=== PATIENT | male | born 1955 | race Caucasian/White ===

== ENCOUNTER → 2016-06-07 | Outpatient (CLI) | payer OTHER ==
[~2016-06-07] MED LIST: ATOR10TA60 PO; CLOP75TA PO; CYCL10TA2 PO; DOXA4TAB3 PO; DOXA8TAB59 PO; GABA600T2 PO; HYDR-2762 PO; HYDR12.53 PO; IOHEXOL 180 MG/ML 10 ML VIAL. ONE; LISI-338 PO; METF500T4 PO; METO50TA2 PO; MULT1TAB6 PO; NITR0.4T6 SL; OMEP1CAP19 PO; PENI500T PO; POTA10TA10 PO; WARF5TAB7 PO; ZOLP5TAB5 PO; [UNRECOGNIZED DRUG - CODE] PO; methylPREDNISolone ACETATE 40 MG/ML VIAL. ONE; methylPREDNISolone ACETATE 80 MG/ML VIAL. ONE
--- NOTE | 2016-06-08 03:47 | PAIN ---
DATE OF SERVICE: 06/07/2016 INITIAL CONSULTATION CHIEF COMPLAINT: Low back, right lower extremity pain. HISTORY OF PRESENT ILLNESS: This is a 61-year-old male who presents with history of pain in low back, right lower extremity in the posterior gluteus, posterior thigh, posterior calf, worse with activity, standing, walking since about 05/03/2016, just over a month. The patient reports it is tingling with numbness and radiation shooting pain, aching and dull alternating with stabbing and sharp, feels "knotted up" again worse with standing, walking, changing positions. The patient reports it awakens him from sleep occasionally, but not every night. It does not affect his bowel or bladder controls with any incontinence and does affect his ability to walk, however. The patient reports he does feel some increased urinary urgency when the pain is worse, but no incontinence. The patient has had previous physical therapy, chiropractic treatment exercise, chiropractic seems to be helping some, but the pain is still significant into the right leg, all his back feels better with the chiropractic treatment, his leg does not. He has had epidural injections in 2013, which helped to about 75% or so by his report. The patient is also taking hydrocodone and cyclobenzaprine, hydrocodone does decrease the pain by about 50% as well. The patient did have MRI scan of the lumbar spine dated 05/17/2016 showing significant findings at L4-L5 with severe disk desiccation and disk bulge with asymmetric prominence of the right paracentral and right subarticular zone. L5-S1 shows superimposed right paracentral disk extrusion on a posterior disk bulge effacing the descending right S1 nerve root, bilateral foraminal disk bulging resulting in moderate to severe bilateral medial that is bilateral neural foraminal stenosis. The patient reports his disability rating from 0-10, 10 being the worst, is a 5 with family and home responsibilities, 9 with recreation, 3 with social activity, 5 with occupation, sexual behavior, self care and life support activities. The patient reports no loss of motor function in the lower extremities, but significant fatigability in the right leg with ambulation and standing even for more than about 15 minutes. PAST MEDICAL HISTORY: Significant for type 2 diabetes, hypertension, gastroesophageal reflux, arthritis, peripheral neuropathy. PREVIOUS SURGERIES: Include coronary artery bypass grafting and 2 previous lumbar surgeries. FAMILY HISTORY: Significant for heart disease and hypertension. SOCIAL HISTORY: The patient is , quit smoking earlier this year, previously smoked 1 pack a day for 35 years. Drinks alcohol 1-2 times a week on average. Has one child living at home, lives locally in [place], [place]. REVIEW OF SYSTEMS: The patient's review of systems is positive for those items mentioned in history of present illness. All systems reviewed and otherwise negative. It is complete, full and well documented on the patient's chart. PHYSICAL EXAMINATION: VITAL SIGNS: Today, the patient's blood pressure is 135/83, pulse 68, respirations 18, temperature is 98.3 degrees Fahrenheit, height 5 feet 10 inches, weight is 232 pounds. GENERAL: The patient is awake, alert, oriented, appropriate, very pleasant demeanor. HEENT: Shows normocephalic, atraumatic. Extraocular movements are intact and symmetrical. Oral cavity shows mucous membranes are moist and pink. Dentition is intact. NECK: Shows anterior throat supple without palpable lymphadenopathy noted. Swallow reflex is symmetrical. CHEST: Shows normal on inspection. Breath sounds are clear to auscultation bilaterally. HEART: Shows S1 and S2 clear. No murmurs auscultated, previous well-healed sternotomy scar is noted. ABDOMEN: Soft, nontender, nondistended. No palpable organomegaly. There is no rebound or guarding demonstrated. BACK: Shows spine grossly in midline, well-healed surgical scars noted in the lumbar distribution, normal-appearing thoracic kyphosis, cervical lordotic curvature and lumbar lordotic curvature is mildly flattened. Lumbar paraspinous musculature appears symmetrical on inspection with palpation shows some mild to moderate tenderness in the lower lumbar distribution only, but only diffusely, slightly more on the right than the left, but is symmetrical. Muscle girth is normal on palpation. The patient shows no tenderness over the spinous processes, sacrum or sacroiliac regions. The patient's rotational motion shows good rotation greater than 10 degrees, right and left in lumbar spine as well as extension greater than 10 degrees, forward flexion 45 degrees without exacerbation of pain. LOWER EXTREMITIES: Show deep tendon reflexes at 1+ in the patellar and tendo calcaneus tendons. Motor exam is strong with 5/5 dorsiflexion, extension, quadriceps and hamstring flexion and symmetrical. No peripheral edema is noted. No clubbing, no cyanosis. Lower extremities are warm and dry to touch, equal in color and appearance. Peripheral pulses are 1+ posterior tibial and dorsalis pedis pulses. The patient is able to stand, stand on his toes without difficulty, no loss of balance, able to heel-toe step for several steps, also walks with normal-appearing gait for a short distance, not using any assistive devices, canes or walkers to ambulate. IMPRESSION: 1. This is a 61-year-old male with approximately 1 month history of increasing low back right lower extremity pain with radicular quality in the right leg. 2. MRI scan as noted. 3. Type 2 diabetes. 4. Hypertension. 5. Arthritis. PLAN: Options were discussed with the patient including conservative medical management, physical therapy and interventional techniques. He would like to pursue interventional techniques. We discussed a lumbar epidural steroid injection using description as well as anatomical models describing the procedure with a caudal approach. The patient understands and would like to proceed with this. Risks were discussed including but not limited to bleeding, infection, possibility of epidural hematoma, subsequent neurological compromise, dural puncture, headaches, spinal cord and/or nerve damage, side effects of steroid medication and poor results regarding pain control. The patient understands and wishes to proceed. The patient will return to clinic in approximately 2 weeks for followup, was counseled on return appointment, activity level and side effects to be aware of. DIAGNOSES: Lumbar radiculopathy with post-lumbar laminectomy syndrome and lumbar degenerative disk disease. PROCEDURE: Caudal approach epidural steroid injection using C-arm fluoroscopic guidance, under sterile prep and drape using local anesthetic. Medication injected 120 mg of Depo-Medrol plus 10 ml of preservative-free normal saline and 2 mL of Isovue for contrast. Condition at discharge is stable. The patient tolerated the procedure well, had no complications. CECILY SHABAZZ MD DR: STEVEN/redd JOB#: [id number] / [id number] BRIA Palomino MD
== END | disposition home or self-care (01) ==
LOC: PNCL 07:56
PROVIDERS: ATTEND Anesthesiology
DX: M51.16 Intervertebral disc disorders with radiculopathy, lumbar region (principal); M96.1 Postlaminectomy syndrome, not elsewhere classified; M19.90 Unspecified osteoarthritis, unspecified site; K21.9 Gastro-esophageal reflux disease without esophagitis; E11.9 Type 2 diabetes mellitus without complications; I10 Essential (primary) hypertension; Z72.89 Other problems related to lifestyle; Z87.891 Personal history of nicotine dependence
CPT/HCPCS: 62323; J1030; J1040; 62327

== ENCOUNTER → 2016-06-21 | Outpatient (CLI) | payer OTHER ==
--- NOTE | 2016-06-21 19:36 | PAIN ---
DATE OF SERVICE: 06/21/2016 PROGRESS NOTE DIAGNOSES: Lumbar radiculopathy with lumbar degenerative disk disease and post-lumbar laminectomy syndrome. HISTORY OF PRESENT ILLNESS: The patient is a 61-year-old male, who returns for followup status post lumbar epidural steroid injection x 1. The patient reports approximately 75% improvement ____ after last injection, still some pain in low back, right leg "knot" sensation in the hip as well as the lower leg on the right side. The patient reports much better; however, most with activity, standing and walking, but is only 3 on a scale of 10 currently. The patient reports it is shooting and sharp pain is gone now in his leg. He does have some dull aching pain with residual. The patient reports no new motor or sensory deficits, no new bowel or bladder incontinence or other complaints. PHYSICAL EXAMINATION: VITAL SIGNS: The patient's blood pressure 135/83, pulse 69, respirations 18, temperature 98.1 degrees Fahrenheit, height 5 feet 10 inches, weight 225 pounds. GENERAL: The patient is awake, alert, oriented, appropriate, very pleasant demeanor. HEENT: Head shows normocephalic, atraumatic. Extraocular movements are intact and symmetrical. Oral cavity, mucous membranes are moist and pink. Dentition is intact. NECK: Shows anterior throat supple without palpable lymphadenopathy noted. Swallow reflex is symmetrical. CHEST: Shows normal on inspection. Breath sounds are clear to auscultation bilaterally. HEART: Shows S1 and S2 clear. No murmurs auscultated. ABDOMEN: Soft, nontender, nondistended. No palpable organomegaly. No rebound or guarding demonstrated. BACK: Shows spine grossly midline. Lumbar paraspinous muscle shows moderate tenderness to palpation, some flattening to lumbar lordotic curvature with well-healed surgical scar once again noted on inspection patient shows good rotational motion as well as extension and flexion of lumbar spine without significant pain reported. EXTREMITIES: Lower extremities show deep tendon reflexes 1+ in the patellar and tendo calcaneus tendons and equal. Motor exam is strong with dorsiflexion, extension, quadriceps and hamstring flexion and 5/5 and equal. Options were discussed with the patient. We will proceed with a second caudal approach epidural steroid injection today with fluoroscopic guidance. Risks were then discussed including, but not limited to bleeding, infection, possibility of epidural hematoma, subsequent neurologic compromise, dural puncture, headaches, spinal cord and/or nerve damage, side effects of steroid medication and poor results regarding pain control. The patient understands and wishes to proceed. The patient will return to clinic in approximately 2 weeks for followup, was counseled on return appointment, activity level and side effects to be aware of. DIAGNOSES: Lumbar radiculopathy with lumbar degenerative disk disease and post-lumbar laminectomy syndrome. PROCEDURE: Caudal approach epidural steroid injection uses C-arm fluoroscopic guidance under sterile prep and drape with local anesthesia. MEDICATIONS INJECTED: 120 mg Depo-Medrol plus 10 mL of preservative-free normal saline and 2 mL Isovue for contrast. CONDITION ON DISCHARGE: Stable. The patient tolerated the procedure well, had no complication. CECILY SHABAZZ MD DR: STEVEN/redd JOB#: [id number] / [id number]
== END | disposition home or self-care (01) ==
LOC: PNCL 07:56
PROVIDERS: ATTEND Anesthesiology
DX: M51.16 Intervertebral disc disorders with radiculopathy, lumbar region (principal); M96.1 Postlaminectomy syndrome, not elsewhere classified
CPT/HCPCS: 62323; J1030; J1040

== ENCOUNTER → 2016-07-19 | Outpatient (CLI) | payer OTHER ==
[~2016-07-19] MED LIST changes: -IOHEXOL 180 MG/ML 10 ML VIAL. ONE; -methylPREDNISolone ACETATE 40 MG/ML VIAL. ONE; -methylPREDNISolone ACETATE 80 MG/ML VIAL. ONE
--- NOTE | 2016-07-19 14:08 | CARD ---
APPROVED REPORT EXAM: Two-dimensional and M-mode echocardiogram with Doppler and color Doppler. Other Information Quality : GoodHR: 70bpm Rhythm : NSR INDICATION Cardiac Disease: CAD 2D DIMENSIONS RVDd3.5 (2.9-3.5cm)Left Atrium(2D)3.8 (1.6-4.0cm) IVSd0.8 (0.7-1.1cm)Aortic Root(2D)2.6 (2.0-3.7cm) LVDd5.5 (3.9-5.9cm)LVOT Diameter2.0 (1.8-2.4cm) PWd0.8 (0.7-1.1cm)LVDs3.7 (2.5-4.0cm) FS (%) 32.2 %SV88.0 ml LVEF(%)59.9 (>50%) Aortic Valve AoV Peak Brent.135.9cm/sAoV VTI29.2cm AO Peak GR.7.4mmHgLVOT Peak Brent.125.4cm/s LVOT VTI 24.58cmAO Mean GR.4mmHg ALETHEA (VMAX)2.01uz5EGZ (VTI)2.62cm2 Mitral Valve MV E Mjxqwkso57.1cm/sMV DECEL TCIU584cd MV A Uqnboxmw17.3cm/sMV E Mean Gr.2mmHg MV MBQ79kkG/A Ratio1.3 MV A Yotzpofh809hpLQD (PHT)3.80cm2 TDI E/Lateral E'8.5E/Medial E'12.7 Pulmonary Valve PV Peak Snqpuurs049.4cm/sPV Peak Grad.5mmHg RVOT VTI20.9cm Tricuspid Valve TR P. Astxfvgh019vn/sRAP CNCZDSAF1xiJi TR Peak Gr.57qsXqVJKP24aoLf Pulmonary Vein S1 Bwteitkj07.1cm/sD2 Omazsuvb11.0cm/s PVa jdrbkcnq204wrsm LEFT VENTRICLE The left ventricle is normal size. There is normal left ventricular wall thickness. Left ventricle sy stolic function is normal. The Ejection Fraction is 55-60%. There is normal LV segmental wall motion. The left ventricular diastolic function and filling is normal for age. There is no ventricular septa l defect visualized. RIGHT VENTRICLE The right ventricle is normal size. The right ventricular systolic function is normal. ATRIA The left atrium size is normal. The right atrium size is normal. The interatrial septum is intact wit h no evidence for an atrial septal defect or patent foramen ovale as noted on 2-D or Doppler imaging. AORTIC VALVE The aortic valve is mildly sclerotic. The aortic valve is trileaflet. Doppler and Color Flow revealed no significant aortic regurgitation. There is no significant aortic valvular stenosis. MITRAL VALVE The mitral valve is normal in structure and function. There is no evidence of mitral valve prolapse. There is no mitral valve stenosis. Doppler and Color Flow revealed trace mitral regurgitation. TRICUSPID VALVE The tricuspid valve is normal in structure and function. Doppler and Color Flow revealed trace to mil d tricuspid regurgitation. There is no tricuspid valve stenosis. PULMONIC VALVE The pulmonary valve is normal in structure and function. Doppler and Color Flow revealed trace pulmon ic valvular regurgitation. There is no pulmonic valvular stenosis. GREAT VESSELS The aortic root is normal in size. The ascending aorta is normal in size. Normal pulmonary venous susan w (Doppler). The IVC is normal in size and collapses >50% with inspiration. PERICARDIAL EFFUSION There is no pleural effusion. There is no evidence of significant pericardial effusion. Critical Notification Critical Value: No <Conclusion> The left ventricle is normal size. Left ventricle systolic function is normal. The Ejection Fraction is 55-60%. There is normal left ventricular wall thickness. There is no significant aortic valvular stenosis. Doppler and Color Flow revealed no significant aortic regurgitation. Doppler and Color Flow revealed trace mitral regurgitation. Doppler and Color Flow revealed trace to mild tricuspid regurgitation.
== END | disposition home or self-care (01) ==
LOC: ECHO 08:34
PROVIDERS: ATTEND Internal Medicine Cardiovascular Disease
DX: I25.10 Atherosclerotic heart disease of native coronary artery without angina pectoris (principal); I34.0 Nonrheumatic mitral (valve) insufficiency; I07.1 Rheumatic tricuspid insufficiency
CPT/HCPCS: 93306

== ENCOUNTER → 2017-07-24 | Outpatient (CLI) | payer OTHER | END | disposition home or self-care (01) | LOC: ECHO 09:55 | DX: I25.10 Atherosclerotic heart disease of native coronary artery without angina pectoris (principal); I36.1 Nonrheumatic tricuspid (valve) insufficiency; E11.9 Type 2 diabetes mellitus without complications; E78.5 Hyperlipidemia, unspecified | CPT/HCPCS: 93306 ==

== ENCOUNTER → 2018-05-16 | Outpatient (CLI) | payer OTHER ==
[~2018-05-16] MED LIST changes: +ASPI-861 PO; -GABA600T2 PO; +GABA600T7 PO; -HYDR-2762 PO; +HYDR-2765 PO; -HYDR12.53 PO; +HYDR12.575 PO; +METF500T16 PO; -METF500T4 PO; -METO50TA2 PO; +METO50TA6 PO; +NITR0.4T22 SL; -NITR0.4T6 SL; -POTA10TA10 PO; +POTA10TA12 PO; +WARF-31 PO; -WARF5TAB7 PO; -[UNRECOGNIZED DRUG - CODE] PO
--- NOTE | 2018-05-21 10:53 | SLEEP ---
DATE OF STUDY: 05/16/2018 ATTENDING PHYSICIAN: Dr. Pacheco. The patient is 63 years old who weighs 230 pounds with a BMI of 33. The patient's [place] score was 12. The patient underwent home sleep study performed by [facility]. Total recording time was 528 minutes. During the night study, the patient had 1 central apnea, 136 obstructive apneas, 94 mixed apneas and 59 hypopneas. The patient's apnea hypopnea index was 33 per hour. Supine sleep was not observed. Mean heart rate was 62 beats per minute with a maximum of 104 beats per minute. Nocturnal oximetry study revealed an average oxygen saturation of 94% with lowest of 79%. 6.7 minutes were spent in oxygen saturation less than 90%. IMPRESSION: 1. Severe sleep apnea-hypopnea syndrome with an AHI of 33 per hour. 2. Mild nocturnal hypoxia secondary to obstructive sleep apnea. RECOMMENDATIONS: 1. The patient would benefit from in-lab CPAP titration study. 2. Once optimal CPAP pressure is achieved, then follow up in 4-6 weeks to assess compliance and to document clinical improvement. 3. Weight loss is strongly advised. 4. Avoid DRAW HAND depressants. 5. Caution regarding driving until symptoms of sleep apnea resolve with the above recommendations. SALVATORE FISHER MD DR: MIROSLAVA/redd JOB#: [id number] / [id number] BETTY Bedolla MD
== END | disposition home or self-care (01) ==
LOC: RT 10:13
PROVIDERS: ATTEND Internal Medicine Pulmonary Disease
DX: G47.33 Obstructive sleep apnea (adult) (pediatric) (principal); G47.34 Idiopathic sleep related nonobstructive alveolar hypoventilation
CPT/HCPCS: G0399

== ENCOUNTER → 2018-08-08 | Outpatient (CLI) | payer OTHER ==
--- NOTE | 2018-08-08 08:58 | CARD ---
MR#: [id number] Date of Study: 08/08/2018 Ordering Physician: RM PARMAR, Referring Physician: RM PARMAR Tech: Zaina Campos RDCS APPROVED REPORT EXAM: Two-dimensional and M-mode echocardiogram with Doppler and color Doppler. Other Information Quality : GoodHR: 62bpm Rhythm : NSR INDICATION CAD 2D DIMENSIONS RVDd3.6 (2.9-3.5cm)Left Atrium(2D)4.0 (1.6-4.0cm) IVSd1.1 (0.7-1.1cm)Aortic Root(2D)3.1 (2.0-3.7cm) LVDd5.5 (3.9-5.9cm)LVOT Diameter2.1 (1.8-2.4cm) PWd0.9 (0.7-1.1cm)LVDs4.1 (2.5-4.0cm) FS (%) 25.8 %SV72.7 ml LVEF(%)50.2 (>50%) Aortic Valve AoV Peak Brent.128.1cm/sAoV VTI31.3cm AO Peak GR.6.6mmHgLVOT Peak Brent.114.0cm/s AO Mean GR.3mmHgAVA (VMAX)3.07cm2 ALETHEA (VTI)3.10cm2 Mitral Valve MV E Iggzhwjs992.0cm/sMV E Peak Gr.5mmHg MV DECEL JGTD164vqJN A Bvfynrhi08.4cm/s MV E Mean Gr.2mmHgE/A Ratio1.5 MV A Hmwfnbvf582ze Pulmonary Valve PV Peak Wngdoato61.1cm/s Tricuspid Valve TR P. Txdhsztw593is/sRAP MHYXGNXE4xrJd TR Peak Gr.85aoHxXYHG55bxAj LEFT VENTRICLE The Left Ventricle is mildly dilated. There is normal left ventricular wall thickness. Left ventricle systolic function is low normal. The Ejection Fraction is 50-55%. Septal motion suggestive of conduc tion defect. Transmitral Doppler flow pattern is Grade II-pseudonormal filling dynamics. RIGHT VENTRICLE The right ventricle is borderline dilated. There is normal right ventricular wall thickness. The righ t ventricular systolic function is normal. ATRIA The left atrium is mildly dilated. The right atrium size is normal. The interatrial septum is intact with no evidence for an atrial septal defect or patent foramen ovale as noted on 2-D or Doppler imagi ng. AORTIC VALVE The aortic valve is normal in structure and function. The aortic valve is trileaflet. Doppler and Col or Flow revealed no significant aortic regurgitation. There is no significant aortic valvular stenosi s. There is no aortic valvular vegetation. MITRAL VALVE The mitral valve is normal in structure and function. There is no evidence of mitral valve prolapse. There is no mitral valve stenosis. Doppler and Color-flow revealed trace mitral regurgitation. TRICUSPID VALVE The tricuspid valve is normal in structure and function. Doppler and Color Flow revealed trace tricus pid regurgitation. The PA pressure was estimated at 25 mmHg. There is no tricuspid valve prolapse or vegetation. There is no tricuspid valve stenosis. PULMONIC VALVE The pulmonic valve is not well visualized. GREAT VESSELS The aortic root is normal in size. The ascending aorta is normal in size. The IVC is dilated and geraldine apses >50% with inspiration. PERICARDIAL EFFUSION There is no evidence of significant pericardial effusion. Critical Notification Critical Value: No <Conclusion> Left ventricle systolic function is low normal. The Ejection Fraction is 50-55%. The Left Ventricle is mildly dilated. Septal motion suggestive of conduction defect. The IVC is dilated and collapses >50% with inspiration. Signed by : Tyson Staples, Electronically Approved : 08/08/2018 08:57:46
== END | disposition home or self-care (01) ==
LOC: ECHO 07:58
PROVIDERS: ATTEND Internal Medicine Cardiovascular Disease
DX: I25.10 Atherosclerotic heart disease of native coronary artery without angina pectoris (principal)
CPT/HCPCS: 93306

== ENCOUNTER → 2019-02-13 | Outpatient (CLI) | payer OTHER ==
[~2019-02-13] MED LIST changes: -ASPI-861 PO; +ASPI-964 PO; +REGADENOSON 0.4 MG/5 ML DISP.SYRIN. IV ONE
--- NOTE | 2019-02-13 11:26 | RAD ---
MR#: [id number] Date of Study: 02/13/2019 Ordering Physician: RM PARMAR, Referring Physician: RM PARMAR Tech: Feli Lima, DANA, RVT, RTR APPROVED REPORT Patient Location: OUT-PATIENT Risk Factors Hypertension Hyperlipidemia Cardiac Disease VELOCITY AND DOPPLER WAVEFORM ANALYSIS RIGHT cm/secWaveformSeverity LEFT cm/secWaveform Severity pCFA 109.2pCFA dCFA dCFA 154.6 Prof Fem Art. 63.6Prof Fem Art. 101.2 Fem Art Prox. 154.6Fem Art Prox. 153.9 Fem Art Mid. 88.3Fem Art Mid. 84.6 Fem Art Dist. 100.8Fem Art Dist. 84.6 Pop Art(AK) 93.4Pop Art(AK) 73.0 [facility]ILY SERVICE CENTER DIRECTOR Prox. 76.4PTA Prox. 78.8 FAMILY SERVICE CENTER DIRECTOR Dist. 92.5PTA Dist. 97.6 Per Art Prox. 43.4Per Art Prox. 68.0 MYESHA Prox. 45.7ATA Prox. 55.7 DPA 72DPA 59 Findings Grayscale images of the bilateral lower extremity arterial vessels reveals moderate diffuse plaque. W aveforms are triphasic and biphasic throughout the lower extremity arterial course. There is no significant stenosis in the bilateral lower extremity arterial vessels. There is three-ve ssel runoff below the knee. Critical Notification Critical Value: No <Conclusion> 1. No significant high-grade stenosis noted in the bilateral lower extremities with three-vessel runo ff. Signed by : Tyson Staples, Electronically Approved : 02/13/2019 11:26:07
--- NOTE | 2019-02-13 11:33 | RAD ---
MR#: [id number] Date of Study: 02/13/2019 Ordering Physician: RM PARMAR, Referring Physician: KALYANI MONSIVAIS Tech: GREG Resendiz ARRT (R) (N) APPROVED REPORT Test Type: Pharmacological Stress Nurse/Tech: Amaris Garcia R.N. Test Indications: CAD Cardiac History: Mi 2012, htn, obese DM Medications: See Electronic Medical Record Medical History: See Electronic Medical Record Resting ECG: SA- SR Resting Heart Rate: 67 bpm Resting Blood Pressure: 136/71mmHg Pretest Chest Pain: No chest painNone Nurse/Tech Notes S1S2, lungs CTA Consent: The procedure was explained to the patient in lay terms. Informed consent was witnessed. Rl eout was entered into [employer]. History and Stress Test performed by RT Casimiro (R) (N) Pharm. Details Pharmacologic stress testing was performed using 0.4mg per 5ml of regadenoson given intravenously ove r 7-10 seconds. Stress Symptoms SOB POST EXERCISE Reason for Termination: Infusion complete Max HR: 115 bpm Max Blood Pressure: 141/69mmHg Blood Pressure response to exercise: Normal blood pressure response during stress. Heart Rate response to exercise: wnl Chest Pain: No. Arrhythmia: No. ST Change: No. INTERPRETATION Stress EKG Conclusion: The resting EKG shows a sinus arrhythmia and mild ST segment changes in the in ferior leads. The stress EKG shows no significant changes from baseline. No EKG evidence of stressed induced ischemia. Imaging Protocol IMAGE PROTOCOL: Rest Tc-99m/stress Tc-99m 1 day Rest: Stress: Viability: Radiopharm.Tc99m StpazrhcrPf20u Sestamibi Hgef01bFf 34mCi Img Date 02/13/2019 02/13/2019 Inj-Img Dxyj61ewo. 60min. Rest Admin Site:IV - Right HandAdministrator:GREG Resendiz, THAIS (R)(N) Stress Admin Site: IV - Right HandAdministrator: RT Geronimo Kirkpatrick)(N) STRESS DATA End Diast. Vol.116.0mlLVEDV index BSA51.0ml End Syst. Vol.33.0mlLVESV index BSA15.0ml Myocardial Ciiq710.0gEject. Bpsobckd76.0% Stress Scores Regional WT0.00Summed WT5.00 Regional WM0.00Summed WM4.00 LV Perfusion The stress images show slight thinning in the inferior lateral wall. The rest images show slight thinning in the inferior lateral wall. Nuclear imaging shows no reversible ischemia. Nuclear imaging shows slight fixed inferior lateral wall thinning which may represent a prior infarct . Wall Motion Left ventricular systolic function is normal with an ejection fraction of greater than 70%. LV Perf. Quant 17 Seg. SSS3.00 17 Seg. SRS4.00 17 Seg. SDS0.00 Stress Defect Extent (% LAD)0.00Rest Defect Extent (% LAD)0.00Rev. Defect Extent (% LAD)0.00 Stress Defect Extent (% LCX) 21.30Rest Defect Extent (% LCX)21.30Rev. Defect Extent (% LCX)0.00 Stress Defect Extent (% RCA)1.10Rest Defect Extent (% RCA)4.40Rev. Defect Extent (% RCA)0.00 Stress Defect Extent (% MITALI)5.90Rest Defect Extent (% IMTALI)5.90Rev. Defect Extent (% MITALI)0.00 IMPRESSION RV Regional Wall Motion Change from Rest: No Change, New Wall Motion Abnormality Conclusion 1. No EKG evidence of stressed induced ischemia. 2. Nuclear imaging shows no reversible ischemia. 3. Nuclear imaging shows slight fixed thinning in the inferior lateral wall which may represent a rell or infarct. 4. Left ventricular systolic function is normal with an ejection fraction of greater than 70%. 5. Moderately low risk Lexiscan nuclear stress test. Signed by : Zhang Hooper MD Electronically Approved : 02/13/2019 11:33:34
== END | disposition home or self-care (01) ==
LOC: NM 08:14
PROVIDERS: ATTEND Internal Medicine Cardiovascular Disease
DX: I25.10 Atherosclerotic heart disease of native coronary artery without angina pectoris (principal); I10 Essential (primary) hypertension; I25.2 Old myocardial infarction; E66.9 Obesity, unspecified; E78.5 Hyperlipidemia, unspecified; E11.9 Type 2 diabetes mellitus without complications
CPT/HCPCS: 78452; 93017; 93923; A9500; J2785

== ENCOUNTER → 2019-08-21 | Outpatient (CLI) | payer OTHER ==
[~2019-08-21] MED LIST changes: -POTA10TA12 PO; +POTASSIUM CHLO10 ME1 PO; -REGADENOSON 0.4 MG/5 ML DISP.SYRIN. IV ONE
--- NOTE | 2019-08-21 09:05 | CARD ---
MR#: [id number] Date of Study: 08/21/2019 Ordering Physician: RM GUZMAN, Referring Physician: RM GUZMAN, Tech: Feli Kim APPROVED REPORT EXAM: Two-dimensional and M-mode echocardiogram with Doppler and color Doppler. Other Information Quality : AverageHR: 75bpm INDICATION Cardiac Disease: CAD RISK FACTORS Hypertension Hyperlipidemia Diabetes Previous smoker 2D DIMENSIONS Left Atrium(2D)3.9 (1.6-4.0cm)IVSd1.1 (0.7-1.1cm) Aortic Root(2D)3.1 (2.0-3.7cm)LVDd5.7 (3.9-5.9cm) LVOT Diameter2.0 (1.8-2.4cm)PWd1.2 (0.7-1.1cm) LVDs4.1 (2.5-4.0cm)FS (%) 28.6 % SV86.6 mlLVEF(%)54.4 (>50%) Aortic Valve AoV Peak Brent.123.9cm/sAoV VTI25.6cm AO Peak GR.6.1mmHgLVOT Peak Brent.116.9cm/s AO Mean GR.3mmHgAVA (VMAX)2.96cm2 Mitral Valve MV E Vmonwjai45.7cm/sMV DECEL JTME652gj MV A Urnvhkaa40.3cm/sE/A Ratio1.1 Tricuspid Valve TR P. Wmrlwqml725bj/sRAP QOYYTFAH6baFz TR Peak Gr.65rnAhZDTU30pbOc LEFT VENTRICLE The left ventricle is normal size. There is borderline concentric left ventricular hypertrophy. The l eft ventricular systolic function is normal. The ejection fraction is 55%. Septal motion consistent w ith conduction abnormality. Transmitral Doppler flow pattern is Grade II-pseudonormal filling dynamic s. RIGHT VENTRICLE The right ventricle is borderline dilated. There is normal right ventricular wall thickness. The righ t ventricular systolic function is normal. ATRIA The left atrium size is normal. The right atrium size is normal. The interatrial septum is intact wit h no evidence for an atrial septal defect or patent foramen ovale as noted on 2-D or Doppler imaging. AORTIC VALVE The aortic valve is normal in structure and function. Doppler and Color Flow revealed no significant aortic regurgitation. There is no significant aortic valvular stenosis. MITRAL VALVE The mitral valve is normal in structure and function. There is no evidence of mitral valve prolapse. There is no mitral valve stenosis. Doppler and Color Flow revealed no mitral valve regurgitation note d. TRICUSPID VALVE The tricuspid valve is normal in structure and function. Doppler and Color Flow revealed trace tricus pid regurgitation with an estimated PAP of 24 mmHg. There is no tricuspid valve stenosis. PULMONIC VALVE The pulmonic valve is not well visualized. Doppler and Color Flow revealed no pulmonic valvular regur gitation. GREAT VESSELS The aortic root is normal in size. The IVC was not well visualized. PERICARDIAL EFFUSION There is no evidence of significant pericardial effusion. Critical Notification Critical Value: No <Conclusion> The left ventricular systolic function is normal. The ejection fraction is 55%. Septal motion consistent with conduction abnormality. Trace tricuspid regurgitation with an estimated PAP of 24 mmHg. There is no evidence of significant pericardial effusion. Signed by : Rm Guzman, Electronically Approved : 08/21/2019 09:05:16
== END | disposition home or self-care (01) ==
LOC: ECHO 07:41
PROVIDERS: ATTEND Internal Medicine Cardiovascular Disease
DX: I51.7 Cardiomegaly (principal); I25.10 Atherosclerotic heart disease of native coronary artery without angina pectoris
CPT/HCPCS: 93306

== ENCOUNTER → 2019-09-18 | Outpatient (CLI) | payer OTHER ==
[~2019-09-18] MED LIST changes: +IOHEXOL 180 MG/ML 10 ML VIAL. ONE; +METF10007 PO; +methylPREDNISolone ACETATE 40 MG/ML VIAL. ONE; +methylPREDNISolone ACETATE 80 MG/ML VIAL. ONE
--- NOTE | 2019-09-18 11:28 | PAIN ---
DATE OF SERVICE: 09/18/2019 PROGRESS NOTE FOR PAIN CLINIC DIAGNOSES: 1. Lumbar radiculopathy with lumbar degenerative disk disease and lumbar post-laminectomy syndrome. 2. Cervical radiculopathy with cervical degenerative disk disease. HISTORY OF PRESENT ILLNESS: The patient is a 64-year-old male who returns for followup status post caudal approach epidural steroid injections, last seen in 05/2016. The patient did very well with two injections with about 75% improvement. The patient reports the pain was decreased for significant amount for about 2-1/2 years. The pain began to return now in the base of the low back and into the bilateral lower extremities, mostly in the posterior gluteus, posterolateral thigh, lateral anterior thighs, medial thighs, lower legs and into the posterior calves with burning in the feet as well. The patient also complains of pain in the neck and the base of the neck that is in the upper back radiating to the right upper extremity in a radicular fashion following a C6-C7 dermatomal distribution with some pain and tingling in the right thumb with some weakness and fatigability in the right upper extremity as well. The patient reports he is having significant pain in the back, it is his main complaint, but his neck and right arm and right side is also painful. The patient reports the pain is sharp, stabbing, shooting, radiating in bilateral lower extremities and in the right arm, intermittent in intensity with tingling and numbness, but gets worse at night. It is aching in quality in both the areas. The patient reports it generally does not awaken him from sleep at night, but he does take a sleeping medication. It does not affect his bowel or bladder control, but does affect his ability to walk, especially when he first gets up. The patient reports he has had epidural injections in the past, physical therapy, chiropractic treatment, exercise. He has done physical therapy and he is currently doing physical therapy, stretching and strengthening exercises for his upper neck and back and his right upper extremity, but it has not been helping significantly. The patient rates his disability rating from 0-10, 10 being the worst, is a 3 with family and home responsibilities, 7 with recreation, 1 with social activity and life support activities, 9 with sexual behavior, 4 with occupational activities and 0 with self-care activities. He did have a new MRI scan of the lumbar spine dated 09/04/2019 showing post-surgical changes at L4-L5 and L5-S1 with right hemilaminectomy present, mild compression of the spinal canal at laminectomy sites, mild spondylosis of the lumbar spine, most pronounced at L2-L3 and L3-L4 with spondylosis resulting in spinal canal narrowing, compression of thecal sac and unmw-zf-dfhpmirb bilateral neural foraminal narrowing. L3-L4 shows marked spinal canal stenosis and compression of thecal sac and bepg-kr-[id number] bilateral neural foraminal narrowing at that level. CURRENT MEDICATIONS: Include omeprazole, Centrum, daily baby aspirin, atorvastatin, gabapentin, potassium, metoprolol, doxazosin, lisinopril, zolpidem, metformin, and hydrochlorothiazide. ALLERGIES: The patient has no known drug allergies. FAMILY HISTORY: Significant for heart disease, diabetes, glaucoma. SOCIAL HISTORY: The patient drinks alcohol about 4 times a week, does not smoke, does not use any illegal, illicit or recreational drugs. He is , lives with his spouse, lives locally in [place], [place], is currently retired. REVIEW OF SYSTEMS: The patient's review of systems is positive for those items mentioned in history of present illness. All systems reviewed and otherwise negative. It is complete, full and well documented on the patient's chart. PHYSICAL EXAMINATION: VITAL SIGNS: The patient's blood pressure is 128/76, pulse 75, respirations 18, temperature 98.2 degrees Fahrenheit, height is 5 feet 10 inches, weight is 234 pounds. GENERAL: The patient is awake, alert, oriented, appropriate, very pleasant demeanor. HEENT: Exam shows normocephalic, atraumatic. Extraocular movements are intact and symmetrical. Oral cavity shows mucous membranes moist and pink. Dentition is intact. NECK: Shows anterior throat supple without palpable lymphadenopathy noted. Swallow reflex symmetrical. CHEST: Shows normal on inspection. Breath sounds are clear bilaterally. No rales, rhonchi or wheezes auscultated. HEART: Shows S1, S2 clear. No murmurs auscultated. ABDOMEN: Obese, soft, nontender, nondistended. No palpable organomegaly is noted. There is no rebound or guarding demonstrated. BACK: Shows spine grossly in the midline, normal-appearing cervical lordotic curvature, thoracic kyphotic curvature and some flattening of lumbar lordotic curvature with well-healed surgical scar in the lumbar distribution. The patient's paraspinous muscle shows symmetrical on inspection of the cervical distribution with some moderate tenderness diffusely bilaterally but only diffusely without significant radiation. The patient has good rotational motion of cervical spine, both laterally greater than 45 degrees closer to 90 degrees right and left as well as full extension, full forward flexion without significant difficulty. EXTREMITIES: Upper extremities show deep tendon reflexes 2+ in the biceps, triceps tendons. Motor exam is strong with english adjunct faculty strength rated at 5/5 as is bicep and tricep flexion. Peripheral pulses are 2+ radial. No peripheral edema is noted. Shoulder shrug is strong and intact without loss of strength on resistance, but with some moderate pain in the base of the neck and the right shoulder and lateral trapezius with resistance on the right side with shoulder shrug as well as with abduction of shoulder at 90 degrees, but again no loss of strength on resistance bilaterally. Lower extremities show deep tendon reflexes 1+ in the patellar and tendo calcaneus tendons. Motor exam is strong with dorsiflexion, extension, quadriceps and hamstring flexion rated at 5/5 and symmetrical. Peripheral pulses are 1+ posterior tibial. No peripheral edema is noted bilaterally. Straight leg raise noted to be negative for reproduction of radicular symptoms bilaterally. PLAN: Options were discussed with the patient. The patient's old chart was reviewed as his current medication regimen updated. Current review of systems updated today as well. We will proceed with a caudal approach epidural steroid injection today. Risks were discussed including but not limited to bleeding, infection, possibility of epidural hematoma, subsequent neurological compromise, dural puncture, headaches, spinal cord and/or nerve damage, side effects of steroid medication and poor results regarding pain control. The patient understands and wished to proceed. The patient will return to clinic in approximately 2 weeks. We discussed a cervical MRI scan. I think he does have a clinical radiculopathy on the right side at C6-C7 dermatomal distribution. We will make arrangements for a cervical MRI scan. In the meantime, the patient will continue with stretching and strength exercises of the upper back, neck and shoulders as he is doing exercise and physical therapy, exercises with these areas, but still with significant pain. Continue to take his anti-inflammatory medications as prescribed [id number] and we will wait for authorization on MRI scan of his cervical spine as well. In the meantime, we will proceed with a caudal epidural steroid injection today. I will have the patient return in approximately 2 weeks' for potential review of the MRI scan of cervical spine, potential cervical epidural steroid injection in the future and will discuss this once the MRI scan is obtained. DIAGNOSES: Lumbar radiculopathy with lumbar degenerative disk disease and lumbar post-laminectomy syndrome. PROCEDURE: Caudal approach epidural steroid injection using C-arm fluoroscopic guidance under sterile prep and drape using local anesthetic. MEDICATION INJECTED: A total of 120 mg Depo-Medrol plus 10 mL preservative-free normal saline and 2 mL of contrast. CONDITION AT DISCHARGE: Stable. The patient tolerated procedure well, had no complications. CECILY SHABAZZ MD DR: STEVEN/redd JOB#: [id number] / [id number]
== END ==
LOC: PNCL 09:01
PROVIDERS: ATTEND Anesthesiology
DX: M51.16 Intervertebral disc disorders with radiculopathy, lumbar region (principal); M96.1 Postlaminectomy syndrome, not elsewhere classified; M50.10 Cervical disc disorder with radiculopathy, unspecified cervical region
CPT/HCPCS: 62323; J1030; J1040; Q9965

== ENCOUNTER → 2019-10-02 | Outpatient (CLI) | payer OTHER ==
[~2019-10-02] MED LIST changes: -IOHEXOL 180 MG/ML 10 ML VIAL. ONE; -methylPREDNISolone ACETATE 40 MG/ML VIAL. ONE; -methylPREDNISolone ACETATE 80 MG/ML VIAL. ONE
--- NOTE | 2019-10-02 11:17 | PAIN ---
DATE OF SERVICE: 10/02/2019 PROGRESS NOTE FOR PAIN CLINIC DIAGNOSES: 1. Lumbar radiculopathy with lumbar degenerative disk disease and lumbar post-laminectomy syndrome. 2. Cervical radiculopathy with cervical degenerative disk disease. HISTORY OF PRESENT ILLNESS: The patient is a 64-year-old male who returns for followup status post caudal epidural steroid injection x 1 with near 100% improvement after the injection, still has almost no pain in the legs. He still has some burning and tingling and paresthesia from peripheral neuropathy in the feet, otherwise doing much better. The patient's chief complaint is neck and right upper extremity pain. The patient has had pain for about 2 years in the neck and shoulder, getting worse with time, radiating from the base of the neck into the right arm and shoulder posteriorly in the deltoid, lateral deltoid, anterior deltoid as well as in the triceps and biceps and forearm anteriorly and into the thumb and first and second fingers with some numbness and tingling as well. The patient describes it as aching, stabbing, sharp, tingling in the hand and neck and shoulder, worse with activity, worse with reaching over his head, weightbearing, repetitive motions, driving a car with his right hand to steering and repetitive weightbearing with carrying items or fine motor movements, becoming more difficult as well with the right hand such as buttoning a button on a garment or picking up small items, does have difficulty feeling with the thumb and first and second fingers on the right side. The patient reports it is a 4 on a scale of 10 as far as pain goes, worst, average and least throughout the week, but now his back is doing much better. It is much more noticeable in the right arm. The patient reports no new motor or sensory deficits, no new bowel or bladder incontinence. Generally, it does not awaken him from sleep at night, but can occasionally if he lies on his right side. The patient reports he has been doing physical therapy exercises with the neck and shoulder as well with the right arm, which has not been helpful. He has been doing this for about the past 2 months or so. PHYSICAL EXAMINATION: VITAL SIGNS: The patient's blood pressure 120/75, pulse 71, respirations 18, temperature 98.2 degrees Fahrenheit, height is 5 feet 10 inches, weight is 231 pounds. HEENT: Exam shows normocephalic, atraumatic. Extraocular movements are intact and symmetrical. Oral cavity shows mucous membranes moist and pink. Dentition is intact. NECK: Shows anterior throat supple without palpable lymphadenopathy noted. Swallow reflex symmetrical. CHEST: Shows normal on inspection. Breath sounds clear to auscultation bilaterally. HEART: Shows S1, S2 clear. No murmurs auscultated. ABDOMEN: Soft, nontender, nondistended. No palpable organomegaly is noted. No rebound or guarding demonstrated. BACK: Shows spine grossly in the midline. Normal appearing thoracic kyphosis and lumbar lordotic curvature slightly flattened with well-healed surgical scar noted. Cervical paraspinous muscle shows symmetrical on inspection, on palpation shows some moderate tenderness diffusely in the inferior aspect of the cervical paraspinous musculature, only on the right into the superior right medial trapezius, but not on the left. The patient has good rotational motion of cervical spine, both laterally as well as extension and flexion without significant difficulty. EXTREMITIES: The patient's upper extremities show deep tendon reflexes 2+ in the biceps and triceps tendons. Motor exam is approximately 4 on a scale of 5 on the right with window cleaner strength 5/5 on the left. Peripheral pulses are 2+ radial. No peripheral edema is noted. Shoulder shrug is strong and intact with some moderate pain reported with resistance on the right side only. This is true with abduction of shoulder to 90 degrees with resistance as well, but no loss of strength on resistance. The patient's sharp and dull discrimination shows some decreased ability to differentiate sharp and dull in the C6 and C7 dermatome on the right side only, but not the left. PLAN: Options were discussed with the patient. The patient's old chart was reviewed as his current medication regimen updated. Current review of systems updated today as well. We will preauthorize the patient for a cervical epidural steroid injection as the patient has significant clinical radiculopathy at C6-C7 dermatomal distribution on the right, status post physical therapy exercises on his own with stretching and strengthening exercises, also heat and massage therapy to the neck and shoulders. The patient has been taking anti-inflammatories at home mostly Motrin, but occasionally will take Tylenol also without significant long-term decrease in the pain. We discussed a cervical epidural steroid injection with the patient and would like to proceed once preauthorization is obtained. We will plan on a translaminar approach at the C6-C7 level for the right cervical radiculopathy in the C6-C7 dermatomal distribution. CECILY SHABAZZ MD DR: STEVEN/redd JOB#: [id number] / [id number]
== END | disposition home or self-care (01) ==
LOC: PNCL 10:11
PROVIDERS: ATTEND Anesthesiology
DX: M51.16 Intervertebral disc disorders with radiculopathy, lumbar region (principal); M50.10 Cervical disc disorder with radiculopathy, unspecified cervical region; M96.1 Postlaminectomy syndrome, not elsewhere classified; Z79.899 Other long term (current) drug therapy
CPT/HCPCS: G0463

== ENCOUNTER → 2020-02-20 | Outpatient (CLI) | payer OTHER ==
[~2020-02-20] MED LIST changes: +REGADENOSON 0.4 MG/5 ML DISP.SYRIN. IV ONE
--- NOTE | 2020-02-20 11:58 | RAD ---
MR#: [id number] Date of Study: 02/20/2020 Ordering Physician: RM PARMAR, Referring Physician: KALYANI MONSIVAIS Tech: RT Pam (R) (N) APPROVED REPORT Test Type: Pharmacological Stress Nurse/Tech: Raquel Mansfield R.N. Test Indications: CAD Cardiac History: Family history, Hypertension, Diabetes, CABG 4 vessel Medications: See Electronic Medical Record Medical History: See Electronic Medical Record Resting ECG: NSR Resting Heart Rate: 74 bpm Resting Blood Pressure: 131/78mmHg Pretest Chest Pain: No chest pain Nurse/Tech Notes S1S2, lungs sound clear Consent: The procedure was explained to the patient in lay terms. Informed consent was witnessed. Rl eout was entered into [employer] ([employer]). History and Stress Test performed by Raquel Mansfield R.N. Pharm. Details Pharmacologic stress testing was performed using 0.4mg per 5ml of regadenoson given intravenously ove r 7-10 seconds. Stress Symptoms Dyspnea POST EXERCISE Reason for Termination: Infusion complete Target HR: 133 Max HR: 98 bpm Max Blood Pressure: 128/61mmHg Blood Pressure response to exercise: Normal blood pressure response during stress. Chest Pain: No. Arrhythmia: No. ST Change: No. INTERPRETATION Stress EKG Conclusion: Baseline EKG showed sinus rhythm. No ischemic changes at peak stress. No arr hythmias. Imaging Protocol IMAGE PROTOCOL: Rest Tc-99m/stress Tc-99m 1 day Rest: Stress: Viability: Radiopharm.Tc99m RdvrcyhizZh40u Sestamibi Dose10.5mCi 32mCi Duration 13min. 13min. Img Date 02/20/2020 02/20/2020 Inj-Img Potr97qzc. 60min. Rest Admin Site:IV - Right AntecubitalAdministrator:RT Pam (R)(N) Stress Admin Site: IV - Right AntecubitalAdministrator: KALYANI ResendizTCShayan, ARRT (R)(N) STRESS DATA End Diast. Vol.126.0mlLVEDV index BSA56.0ml End Syst. Vol.43.0mlLVESV index BSA19.0ml Myocardial Vljg145.0gEject. Hvalavwr04.0% Stress Scores Regional WT0.00Summed WT5.00 Regional WM0.00Summed WM4.00 Study quality was good. Left Ventricular size was Normal at Rest and Stress. Lung uptake was . Left Ventricular ejection fraction is 66%. The rest and stress images show normal perfusion, normal contraction and thickening. LV Perf. Quant 17 Seg. SSS1.00 17 Seg. SRS1.00 17 Seg. SDS1.00 Stress Defect Extent (% LAD)0.00Rest Defect Extent (% LAD)0.00Rev. Defect Extent (% LAD)0.00 Stress Defect Extent (% LCX) 0.00Rest Defect Extent (% LCX)0.00Rev. Defect Extent (% LCX)0.00 Stress Defect Extent (% RCA)0.00Rest Defect Extent (% RCA)4.40Rev. Defect Extent (% RCA)0.00 Stress Defect Extent (% MITALI)0.90Rest Defect Extent (% MITALI)0.90Rev. Defect Extent (% MITALI)0.00 Conclusion 1. Regadenoson cardioisotope stress test did not show any evidence of ischemia or infarct. 2. Normal left ventricular systolic function with ejection fraction calculated at 66%. 3. Low risk for cardiac events. Signed by : Rm Parmar, Electronically Approved : 02/20/2020 11:58:21
== END ==
LOC: NM 12:51
PROVIDERS: ATTEND Internal Medicine Cardiovascular Disease
DX: I25.10 Atherosclerotic heart disease of native coronary artery without angina pectoris (principal)
CPT/HCPCS: 78452; 93017; A9500; J2785

== ENCOUNTER → 2020-03-02 | Outpatient (CLI) | payer OTHER ==
[~2020-03-02] MED LIST changes: -REGADENOSON 0.4 MG/5 ML DISP.SYRIN. IV ONE
--- NOTE | 2020-03-02 10:15 | PDOC ---
Progress Note - Pain Clinic Date of Service: DOS: DATE: 03/02/20 TIME: 10:11 Diagnosis: Dx: Lumbar radiculopathy with lumbar degenerative disc disease and lumbar postlaminectomy syndrome next Cervical radiculopathy with cervical degenerative disc disease History or Present Illness: HPI: 65-year-old male returns for follow-up status post caudal epidural steroid injection x1 September 18, 2019. Patient reports 100% improvement in his low back and leg pain for several months about 2 months ago the pain began to return in the low back and bilateral lower extremities mostly the posterior gluteus posterior lateral thigh lateral anterior thigh anterior medial thighs medial lower legs as well especially with some tingling on the anterior thighs bilaterally. Patient is recently seen his neurosurgeon as he has had previous lumbar surgery and he is recommending conservative care at this time with some central stenosis most noticeably at the L5-4 level as well as some HDL for 5 with prominent L3-4 and L4-5 disc bulges. Patient reports is worse with walking standing changing positions gently better with sitting or laying down does not awaken her from sleep most nights but can occasionally patient reports pain is a 10 on scale 10 is worse over the past week 6 on average 3 at its least and is a 3 today patient ports aching sharp shooting stabbing radiating to the lower extremities right essentially equal to left at this time. Patient reports no new motor or sensory deficits no new bowel or bladder incontinence or other complaints. Patient has been doing stretching strength exercises daily sometimes multiple times during the day also taking Advil Tylenol without significant decrease in pain. Physical Exam: VS: Blood pressure is 136/89 pulse 75 respirations 18 temperature 90.4 F height is 5 feet 10 inches weight is 242 pounds PE: PHYSICAL EXAMINATION: GENERAL: The patient is awake, alert, oriented, appropriate, very pleasant demeanor HEENT: Shows normocephalic, atraumatic. Extraocular movements are intact and symmetrical. Oral cavity: Mucous membranes moist and pink. Dentition is intact. NECK: Shows anterior throat supple without palpable lymphadenopathy noted. Swallow reflex symmetrical. CHEST: Shows normal on inspection. Breath sounds are clear bilaterally, no rales rhonchi wheezes auscultated. HEART: Shows S1, S2 clear. No murmurs auscultated. ABDOMEN: Soft, nontender, nondistended, obese. No palpable organomegaly is noted. No rebound or guarding demonstrated. BACK: Shows spine grossly in the midline. Normal-appearing cervical lordotic curvature. There is slightly increased thoracic kyphosis, some minor flattening of the lumbar lordotic curvature. Well-healed surgical scar noted in the midline. Lumbar paraspinous muscles show symmetrical on inspection, on palpation shows some moderate tenderness diffusely throughout the upper, middle and lower distribution of the paraspinous muscles bilaterally, but without specific trigger points, without radiation of pain. The patient has good rotational motion of the lumbar spine, both laterally as well as extension and flexion without significant difficulty. No tenderness over the spinous processes, sacrum or sacroiliac regions. EXTREMITIES: Lower extremities show deep tendon reflexes 1+ in the patellar and tendo calcaneus tendons. Motor exam is 4 on a scale of 5 with right dorsiflexion, extension, quadriceps and hamstring flexion and 4/5 on the left. Peripheral pulses are 1+ posterior tibial. No peripheral edema is noted bilaterally. Lower extremities are warm and dry to touch, equal in color and appearance. SKIN: Shows warm and dry, good turgor. No edema. No sores, rashes or bruising throughout. Procedure: Procedure: Options were discussed with the patient. Patient chart was reviewed his current medication regimen updated current review of systems updated today as well. Patient has a clinical radiculopathy in the L4-5 dermatomal distribution. Patient did very well after previous epidural steroid injection in August of this year. We will preauthorize patient for a lumbar epidural steroid injection she did very well with these in the past. Patient in the meantime we'll continue with daily stretching strength exercises has been doing as well as walking as tolerated also taking iejp-jsb-oodjedp analgesics will also add a Medrol Dosepak patient given instructions well side effects beware with the medication. Patient will follow up after preauthorization we'll plan on translaminar L4-5 lumbar epidural steroid injection at that time. Medication Injected: Med Injected: None Condition at Discharge: Condition at Discharge: Condition at discharge is stable. CECILY SHABAZZ MD Mar 02, 2020 10:15
== END | disposition home or self-care (01) ==
LOC: PNCL 08:44
PROVIDERS: ATTEND Anesthesiology
DX: M51.16 Intervertebral disc disorders with radiculopathy, lumbar region (principal); M50.10 Cervical disc disorder with radiculopathy, unspecified cervical region; M96.1 Postlaminectomy syndrome, not elsewhere classified; Z79.82 Long term (current) use of aspirin; Z79.899 Other long term (current) drug therapy; Z98.890 Other specified postprocedural states
CPT/HCPCS: 99212; G0463

== ENCOUNTER → 2020-03-16 | Outpatient (CLI) | payer OTHER ==
[~2020-03-16] MED LIST changes: +IOHEXOL 180 MG/ML 10 ML VIAL. ONE; +methylPREDNISolone ACETATE 40 MG/ML VIAL. ONE; +methylPREDNISolone ACETATE 80 MG/ML VIAL. ONE
--- NOTE | 2020-03-16 10:17 | PDOC ---
Progress Note - Pain Clinic Date of Service: DOS: DATE: 03/16/20 TIME: 10:14 Diagnosis: Dx: Lumbar radiculopathy with lumbar degenerative disc disease and post lumbar laminectomy syndrome Cervical radiculopathy with cervical degenerative disc disease History or Present Illness: HPI: 65-year-old male returns follow-up status post lumbar epidural steroid traction x1. Patient reports near 100% improvement for 3 months pain returning now and he is waiting for preauthorization with his insurance provider to proceed with a second injection he has obtained that now would like to proceed. Patient reports pain is in the low back bilateral lower extremities right essentially equal to left posterior gluteus posterior thighs lateral thighs anterior thighs medial thighs worse with walking standing changing positions better with sitting or laying down does not awaken from sleep at night. Patient ports his pain is an 8 on scale 10 is worse over the past week for an average 0 its least is a 4 today. Patient reports no new motor or sensory deficits no bladder incontinence or other complaints. Physical Exam: VS: Blood pressure is 164/77 pulse 89 respirations 18 temperature 98.7 F height is 5 feet 10 inches is 238 pounds PE: PHYSICAL EXAMINATION: GENERAL: The patient is awake, alert, oriented, appropriate, very pleasant demeanor HEENT: Shows normocephalic, atraumatic. Extraocular movements are intact and symmetrical. NECK: Shows anterior throat supple without palpable lymphadenopathy noted. Swallow reflex symmetrical. CHEST: Shows normal on inspection. Breath sounds are clear bilaterally, distant but no rales rhonchi or wheezes auscultated. HEART: Shows S1, S2 clear. No murmurs auscultated. ABDOMEN: Soft, nontender, nondistended, obese. No palpable organomegaly is noted. No rebound or guarding demonstrated. BACK: Shows spine grossly in the midline. Normal-appearing cervical lordotic curvature. There is slightly increased thoracic kyphosis, some minor flattening of the lumbar lordotic curvature. Lumbar paraspinous muscles show symmetrical on inspection, on palpation shows some moderate tenderness diffusely throughout the upper, middle and lower distribution of the paraspinous muscles bilaterally without specific trigger points, without radiation of pain. The patient has good rotational motion of the lumbar spine, both laterally as well as extension and flexion without significant difficulty. No tenderness over the spinous processes, sacrum or sacroiliac regions. EXTREMITIES: Lower extremities show deep tendon reflexes 1+ in the patellar and tendo calcaneus tendons. Motor exam is 4 on a scale of 5 with right dorsiflexion, extension, quadriceps and hamstring flexion and 4/5 on the left. Peripheral pulses are 1+ posterior tibial. No peripheral edema is noted bilaterally. Lower extremities are warm and dry to touch, equal in color and appearance. SKIN: Shows warm and dry, good turgor. No edema. No sores, rashes or bruising throughout. Procedure: Procedure: Options were discussed with the patient. Patient chart was reviewed his current medication regimen updated current review of systems updated today as well. We will proceed with a second in the series lumbar epidural steroid injection today with fluoroscopic guidance. Risks were discussed including but not limited to: Bleeding, infection, possibility of epidural hematoma and subsequent neurological compromise, dural puncture, headaches, spinal cord and/or nerve damage, side effects of steroid medication, and poor results regarding pain control. Patient understands wished to proceed. Patient will return to clinic in approximate 2 weeks for follow-up was counseled as to return appointment activity level and side effects to be aware of. Medication Injected: Med Injected: Procedure is lumbar epidural steroid injection under local anesthetic using sterile prep and drape at the L3-4 level using C-arm fluoroscopic guidance in both AP and lateral views medications injected is 120 mg Depo-Medrol + 10 mL preservative-free normal saline and 2 mL contrast- condition at discharge is stable patient tolerated procedure well had no complications. Condition at Discharge: Condition at Discharge: Condition at discharge stable, patient tolerated seizure well had no complications. CECILY SHABAZZ MD Mar 16, 2020 10:17
== END | disposition home or self-care (01) ==
LOC: PNCL 09:24
PROVIDERS: ATTEND Anesthesiology
DX: M51.16 Intervertebral disc disorders with radiculopathy, lumbar region (principal); M50.10 Cervical disc disorder with radiculopathy, unspecified cervical region; M96.1 Postlaminectomy syndrome, not elsewhere classified; Z79.82 Long term (current) use of aspirin; Z79.899 Other long term (current) drug therapy; Z98.890 Other specified postprocedural states
CPT/HCPCS: 62323; J1030; J1040; Q9965

== ENCOUNTER → 2020-08-02 | Outpatient (CLI) | payer OTHER ==
[~2020-08-02] MED LIST changes: +DOCU-153 PO; +EMPA10TA PO; +HYDR-2761 PO; -IOHEXOL 180 MG/ML 10 ML VIAL. ONE; -LISI-338 PO; +LISI-517 PO; +METH-562 PO; -methylPREDNISolone ACETATE 40 MG/ML VIAL. ONE; -methylPREDNISolone ACETATE 80 MG/ML VIAL. ONE
[2020-08-02 09:37] LABS: BASO # 0.1 x10^3/uL (0.0-0.2); BASO % 1 % (0-3); EOS # 0.4 x10^3/uL (0.0-0.7); EOS % 6 % (0-3); HEMATOCRIT 43.1 % (39.0-53.0); HEMOGLOBIN 14.8 g/dL (13.0-17.5); LYMPH # 1.6 x10^3/uL (1.0-4.8); LYMPH % 22 % (24-48); MEAN CORPUSCULAR HEMOGLOBIN 30 pg (25-35); MEAN CORPUSCULAR HGB CONC 34 g/dL (31-37); MEAN CORPUSCULAR VOLUME 89 fL (79-100); MONO # 0.5 x10^3/uL (0.0-1.1); MONO % 7 % (0-9); NEUT % 65 % (31-73); PLATELET COUNT 119 x10^3/uL (140-400); RED BLOOD COUNT 4.87 x10^6/uL (4.30-5.70); RED CELL DISTRIBUTION WIDTH 12.7 % (11.5-14.5); WHITE BLOOD COUNT 7.6 x10^3/uL (4.0-11.0)
[2020-08-02 09:59] LABS: ALBUMIN 4.2 g/dL (3.4-5.0); ALBUMIN/GLOBULIN RATIO 1.6 (1.0-1.7); CALCIUM 8.3 mg/dL (8.5-10.1); CREATININE 1.1 mg/dL (0.7-1.3); GFR 67.6; POTASSIUM 4.2 mmol/L (3.5-5.1); TOTAL BILIRUBIN 0.8 mg/dL (0.2-1.0); TOTAL PROTEIN 6.9 g/dL (6.4-8.2)
[2020-08-03 00:12] LABS: HEMOGLOBIN A1C 7.1 % (4.8-5.6)
--- NOTE | 2020-08-03 08:15 | NUR ---
FAXED PRETESTING RESULTS TO DR SANDERS'S OFFICE.
== END ==
LOC: SURGPAT 08:57
PROVIDERS: ATTEND Neurological Surgery
DX: Z01.812 Encounter for preprocedural laboratory examination (principal); M48.062 Spinal stenosis, lumbar region with neurogenic claudication; M54.16 Radiculopathy, lumbar region; Z20.822 Contact with and (suspected) exposure to COVID-19
CPT/HCPCS: 36415; 80053; 83036; 85025; 87641; U0003; U0005

== ENCOUNTER 2020-08-05 07:16 | Observation (INO) | payer OTHER ==
--- NOTE | 2020-08-04 16:22 | PREOP HP ---
DATE OF SERVICE: 08/05/2020 PREOPERATIVE HISTORY AND PHYSICAL HISTORY OF PRESENT ILLNESS: The patient is a pleasant 65-year-old who has difficulty with low back pain and pain, which radiates to both of his hips. He has left leg pain, which radiates down the posterior thigh and posterolateral thigh. Both anterior thighs feel numb left greater than right. He has also numbness and pain in both of his feet. He does, however, have an incidental diagnosis of neuropathy. The problem started about a year ago spontaneously. He feels as though his symptoms are slowly worsening. Standing and walking markedly increases discomfort. He did undergo three epidural steroid injections, which he says helped each about 3-4 weeks. CURRENT MEDICATIONS: Tylenol, hydrochlorothiazide, gabapentin, metoprolol, atorvastatin, doxazosin, lisinopril, metformin, potassium, aspirin, omeprazole, Centrum. PAST MEDICAL HISTORY: PE, diabetes, [place], hypertension, CAD, neuropathy. PAST SURGICAL HISTORY: Coronary artery bypass graft, lumbar surgery in 1996, lumbar surgery in 2006. FAMILY HISTORY: Heart disease, hypertension. SOCIAL HISTORY: , retired. Quit smoking this year. Drinks alcohol 1-2 times per week. ALLERGIES: No known drug allergies. REVIEW OF SYSTEMS: A 12-point review of systems was performed and is noncontributory except as mentioned above. PHYSICAL EXAMINATION: GENERAL: Alert, pleasant, and in no acute distress. HEENT: Head normocephalic, atraumatic. SKIN: Warm and dry. Well-healed lumbar incision. MUSCULOSKELETAL: Lumbar paraspinal muscle bulk is normal, restricted range of motion of the lumbar spine, gyhl-yj-vrlqudyf tenderness of the lower lumbar spine on palpation, normal range of motion of the lower extremities bilaterally. EXTREMITIES: No clubbing, cyanosis or edema. NEUROLOGIC: Alert and oriented x 3, strength is 5/5 in bilateral lower extremities, sensory was intact to light touch in the lower extremities bilaterally except for a subjective decrease in light touch involving the left anterior thigh and both of his feet diffusely. Reflexes were trace and symmetric in the bilateral lower extremities, negative straight leg raising bilaterally, normal gait. IMAGING DATA: I reviewed the lumbar MRI scan. On that study at L3-L4, there is diffuse disk bulging with central disk protrusion. There is significant stenosis at this level as well as L2-3. At L4-L5, there are right-sided hemilaminotomy changes from the previous operation. There is a narrowed spinal canal on the left with lateral recess narrowing. ASSESSMENT AND PLAN: The patient is having difficulty with lumbar stenosis and lateral recess narrowing causing radicular symptoms. My recommendation at this point would be to operate at L2-3 and L3-L4 and perform a laminectomy. At L4-L5, he should have a left-sided hemilaminotomy with decompression of dura and nerve root. I discussed all of this with him in detail. He would like to go ahead. We will make the arrangements. CATRACHO/TRACEE/KEVIN DR: Hannah TID: [id number] JOSSE
[2020-08-05] VITALS (9 sets, daily range): BP systolic 103–117; BP diastolic 59–73
[~2020-08-05] VITALS: Ht 177.8 cm; Wt 107.5 kg
[~2020-08-05 07:16] MED LIST changes: +BUPIVACAINE-EPI 0.5%-1:200000 MPF 30 ML VIAL. ONE; +DEXAMETHASONE SOD PHOS 4 MG/ML VIAL ONE; -DOCU-153 PO; +GELATIN SPONGE SIZE 100. ONE; -HYDR-2761 PO; +HYDROmorphone 2 MG/ML VIAL IVP PRN; +IV RINGERS,LACTATED 1000ML 1,000 ML IV SCH; +KETOROLAC 60 MG/2 ML VIAL. ONE; +LIDOCAINE 2% PF 5 ML VIAL. ONE; -METH-562 PO; +MORPHINE SULFATE 2 MG/ML VIAL. IVP PRN; +ONDANSETRON PF 4 MG/2 ML VIAL. ONE; +PHENYLEPHRINE in 0.9% NACL PF 1 MG/10 ML SYRINGE. IV ONE; +PROCHLORPERAZINE 10 MG/2 ML VIAL. IVP PRN; +PROPOFOL 10 MG/ML (20ML) VIAL. IV ONE; +PROPOFOL 50 ML IV ONE; +REMIFENTANIL 2 MG VIAL. IV ONE; +ROCURONIUM 50 MG/5 ML VIAL. ONE; +THROMBIN TOPICAL 20,000 UNIT SPRAY.SYRN KIT TP ONE; +fentaNYL PF VIAL 100 MCG/2 ML VIAL IVP PRN; +fentaNYL PF VIAL 100 MCG/2 ML VIAL ONE
[2020-08-05] MEDS ORDERED: MIDAZOLAM HCL/PF 2 MG/2 ML VIAL. ONE (08:17)
[2020-08-05] MEDS ORDERED: SUCCINYLCHOLINE 200 MG/10 ML VIAL. ONE (08:17)
[2020-08-05] MEDS ORDERED: GLYCOPYRROLATE 1 MG/5 ML VIAL. ONE (08:45)
[2020-08-05] MEDS ORDERED: PHENYLEPHRINE 10 MG/ML VIAL. ONE ×2 (09:01→10:50)
[2020-08-05] MEDS ORDERED: DEXTROSE 50% 25 GM / 50ML DISP.SYRIN. IV ONE (10:41)
[2020-08-05] MEDS ORDERED: DEXAMETHASONE SOD PHOS 4 MG/ML VIAL ONE ×2 (10:41→11:49)
[2020-08-05] MEDS ORDERED: PHENYLEPHRINE in 0.9% NACL PF 1 MG/10 ML SYRINGE. IV ONE (10:50)
[2020-08-05] MEDS ORDERED: PROPOFOL 50 ML IV ONE ×2 (11:09→11:43)
[2020-08-05] MEDS ORDERED: REMIFENTANIL 1 MG VIAL. IV ONE (11:11)
[2020-08-05] MEDS ORDERED: GELATIN SPONGE SIZE 100. ONE (11:49)
[2020-08-05] MEDS ORDERED: DESFLURANE > 120 MINUTES IH ONE (12:15)
[2020-08-05] MEDS ORDERED: NALOXONE 0.4 MG/ML VIAL. IV PRN (12:30)
[2020-08-05] MEDS ORDERED: MAG HYDROX/ALUMINUM HYD/SIMETH 30 ML ORAL.SUSP PO PRN (12:30)
[2020-08-05] MEDS ORDERED: 0.9 % SODIUM CHLORIDE 10 ML DISP.SYRIN. IV PRN (12:30)
[2020-08-05] MEDS ORDERED: ACETAMINOPHEN 325 MG TABLET. PO PRN (12:30)
[2020-08-05] MEDS ORDERED: CALCIUM CARBONATE 500 MG TAB.CHEW PO PRN (12:30)
[2020-08-05] MEDS ORDERED: ONDANSETRON PF 4 MG/2 ML VIAL. IVP PRN (12:30)
[2020-08-05] MEDS ORDERED: MAGNESIUM HYDROXIDE 2,400 MG/30 ML ORAL.SUSP. PO PRN (12:30)
[2020-08-05] MEDS ORDERED: HYDROcodone/APAP 5/325MG 1 TAB TABLET PO PRN (12:30)
[2020-08-05] MEDS ORDERED: DEXTROSE 50% 25 GM / 50ML DISP.SYRIN. IV PRN (12:30)
[2020-08-05] MEDS ORDERED: POTASSIUM CL 20MEQ-0.45% NACL 1,000 ML IV SCH (12:30)
[2020-08-05] MEDS ORDERED: ZOLPIDEM 5 MG TABLET. PO PRN (12:30)
[2020-08-05] MEDS ORDERED: METHOCARBAMOL 750 MG TABLET PO PRN (12:30)
[2020-08-05] MEDS ORDERED: diphenhydrAMINE HCL 25 MG CAPSULE PO PRN (12:30)
[2020-08-05] MEDS ORDERED: fentaNYL PF VIAL 100 MCG/2 ML VIAL IVP PRN (12:30)
--- NOTE | 2020-08-05 12:43 | OP ---
DATE OF SURGERY: 08/05/2020 PREOPERATIVE DIAGNOSES: Lumbar spinal stenosis L2-L3, L3-L4, lateral recess stenosis, left L4-L5. OPERATION PERFORMED: Left direct laminectomy L2-L3, left direct laminectomy L3-L4, hemilaminotomy with microdecompression of dura and nerve root on the left, L4-L5. The operation was done with multimodality monitoring including EMG, SSEP. We used fluoroscopy and microscopic dissection. SURGEON: Bayron Reno M.D. FLAVOR TANK TENDER: Zohreh Mayfield APRN assisted with the surgery. She assisted with the exposure, the multilevel laminectomy as well as the closure. OPERATIVE INDICATION: The patient is a pleasant 65-year-old having difficulties with back and bilateral leg pain, usually worse on the left side. On imaging studies, he got the above-mentioned findings and I recommended lumbar microsurgery. I spoke with him about the surgery, the risks, technique and expected postoperative course, and he wished to go ahead. DESCRIPTION OF PROCEDURE: Following general endotracheal anesthesia, the patient was positioned prone on the Aleks table. Lumbar region prepped and draped in standard fashion. RUSSEL hose and AV impulse boots were applied for DVT prophylaxis. The microscope was draped, fluoroscopy was draped and brought into the field. Monitoring was established. Ancef 2 grams was given less than one hour prior to initiation of surgery. Using fluoroscopic guidance, a midline incision was made extending from L2 to L5, I dissected down through the skin, subcutaneous tissue, reflected the paraspinal muscles first at L2-L3 and placed a Bullock microdisk retractor. I brought in the microscope and using the high speed air drill, I burred down a generous hemilaminotomy. I tilted the patient far away from ri and drilled out of the lamina to the contralateral side. I peeled away thickened ligamentum flavum, exposing the dura and removed the midline epidural fat and then working laterally peeled away the ligamentum flavum and performed a partial foraminotomy. The disc was not bulging significantly. I irrigated with antibiotic solution and Gelfoam over the laminectomy site. I then moved the retractor down to L3-L4. The identical operation was performed at L3-L4, there was some disc bulging when I palpated medially, but the disc was rock hard and no discectomy was warranted. I fully decompressed this region in similar fashion. Hemostasis remained excellent. Then, I moved down to L4-5, again moving the retractor inferiorly. At this level, I burred down a very generous hemilaminotomy and then performed a partial foraminotomy. The dura was pushed quite far medially from the hypertrophic facet and I trimmed this material away performing a foraminotomy at left and the nerve and dura moved laterally. Hemostasis was excellent. I irrigated copiously with antibiotic solution. I then removed the retractor, obtained hemostasis and irrigated copiously the muscle fascia, obtained perfect hemostasis. I closed the wound in layers with absorbable suture. The skin was closed with 4-0 subcuticular stitch. I felt that the surgery went very well. EVER/KEVIN DR: Jeanie TID: [id number] MTDNorberto
[2020-08-05] MEDS: hydroCHLOROthiazide 12.5 MG CAPSULE PO SCH (13:00)
[2020-08-05] MEDS: METOPROLOL TART IMMED RELEASE 50 MG TABLET. PO SCH ×2 (13:00→21:00)
[2020-08-05] MEDS: LISINOPRIL 5 MG TABLET. PO SCH (13:00)
[2020-08-05] MEDS: POTASSIUM CHLORIDE 10 MEQ TABLET.ER. PO SCH (13:00)
[2020-08-05] MEDS: DOXAZOSIN MESYLATE 4 MG TABLET. PO SCH (13:00)
--- NOTE | 2020-08-05 15:00 | NUR ---
received from recovery. dressing saturated with serosanguineous drainage. reinforced with abd /Medipore tape. states he has neuropathy in soles of feet. has good sensation on tops of feet, good motion and sensation bilateral lower extremities. he is rating his pain a "6"; medicated with fentanyl denies numbness or tingling.
[2020-08-05] MEDS: PANTOPRAZOLE 40 MG TABLET.DR. PO SCH (16:30)
--- NOTE | 2020-08-05 17:00 | NUR ---
reinforced dressing is "leaking". removed original dressing. cleansed with chlor prep then 10 pack 4x4's then 2 abd and medipore tape applied. up in chair for supper. iv fluids continue. at bedside
[2020-08-05] MEDS: GABAPENTIN 300 MG CAPSULE. PO SCH ×2 (17:15→20:51)
[2020-08-05] MEDS: metFORMIN 500 MG TABLET PO SCH (17:16)
[2020-08-05] MEDS: DOCUSATE SODIUM 100 MG CAPSULE. PO SCH (20:51)
[2020-08-05] MEDS: HYDROcodone/APAP 5/325MG 1 TAB TABLET PO PRN (20:58)
[2020-08-05] MEDS ORDERED: ATORVASTATIN CALCIUM 10 MG TABLET. PO SCH (21:00)
[2020-08-06 03:15] VITALS: BP 109/68
--- NOTE | 2020-08-06 05:45 | NUR ---
Lortab given at 2100. Dressing C/D/I. Patient states "I need my Cpap, I guess." "keep jumping awake." RA sat 97%. O2 at 3l put on per NC. Patient reports that he didn't expect to stay the [facility] in hospital.
[2020-08-06 06:12] VITALS: BP 140/87
[2020-08-06] MEDS: HYDROcodone/APAP 5/325MG 1 TAB TABLET PO PRN ×2 (06:17→12:38)
[2020-08-06] MEDS: PANTOPRAZOLE 40 MG TABLET.DR. PO SCH (06:18)
--- NOTE | 2020-08-06 06:20 | NUR ---
Lortab 2 tabs given for c/o "back pain and thigh numbness. FSBS 140. Eyes seem puffy this am.
[2020-08-06] MEDS: hydroCHLOROthiazide 12.5 MG CAPSULE PO SCH (08:18)
[2020-08-06] MEDS: metFORMIN 500 MG TABLET PO SCH (08:18)
[2020-08-06] MEDS: DOXAZOSIN MESYLATE 4 MG TABLET. PO SCH (08:18)
[2020-08-06] MEDS: METOPROLOL TART IMMED RELEASE 50 MG TABLET. PO SCH (08:19)
[2020-08-06] MEDS: DOCUSATE SODIUM 100 MG CAPSULE. PO SCH (08:19)
[2020-08-06] MEDS: POTASSIUM CHLORIDE 10 MEQ TABLET.ER. PO SCH (08:19)
[2020-08-06] MEDS: LISINOPRIL 5 MG TABLET. PO SCH (08:20)
[2020-08-06] MEDS: GABAPENTIN 300 MG CAPSULE. PO SCH (08:20)
[2020-08-06] MEDS ORDERED: NON FORMULARY ITEM (Empagliflozin (Jardiance) 10 MG) PO SCH (09:00)
--- NOTE | 2020-08-06 09:00 | NUR ---
Up in chair. Some discomfort lower back. Applied new ice pack. Discussed the plan of care for today. Verbalized understand. Cont. monitor. Waiting for therapy.
[2020-08-06] MEDS ORDERED: METH-562 PO (10:36)
[2020-08-06] MEDS ORDERED: DOCU-153 PO (10:36)
[2020-08-06] MEDS ORDERED: HYDR-2761 PO (10:36)
--- NOTE | 2020-08-06 10:38 | DISCH ---
DISCHARGE INSTRUCTIONS Condition on Discharge Condition on Discharge: Stable Activity After Discharge Activity Instructions for Disc: Activity as tolerated, Avoid exertion Other activity instructions: no driving for a week Bathing Instructions: Shower-keep dressing dry Lifting Instructions after Dis: No heavy lifting, No pulling or pushing, Do not lift >10 pounds Diet after Discharge Additional Diet Restrictions: resume home diet Wound Incision Care Wound/Incision Care: Ice to area for comfort Other wound/incision instructi: may remove dressing in 48 hours if dry then may shower, no soaking Contacting the after DC Call your doctor for: Concerns you may have Follow-Up Follow up with: Dr. Sanders's nurse in 2 weeks [phone] TITO SANDERS MD August 06, 2020 10:38
[2020-08-06 10:45] VITALS: BP 106/54
--- NOTE | 2020-08-06 13:25 | NUR ---
Discharge instructions given with prescriptions. Answered questions and concerns. Both pt and spouse verbalized understanding. Also instructed and demonstrated spouse how to change dressing. Supplies given. Pt discharged home escorted out by w/c.
--- NOTE | 2020-08-09 14:07 | PATHOLOGY ---
[facility] Accession Number: [id number] . 01 Material submitted: . vertebral column - LUMBAR DECOMPRESSION . 01 Clinical history: . LUMBAR STENOSIS, RADICULOPATHY LUMBAR LAMINECTOMY L2-3,L3-4 LUMBAR MICRODECOMPRESSION L4-5 . 02 Diagnosis: Segments of fibrocartilaginous tissue and bone, lumbar decompression: - Degenerative changes of fibrocartilaginous tissue. ([facility]; 08/09/2020) R 08/09/2020 1129 Local . 02 Comment: There is no evidence of an acute inflammatory process or malignancy. ([facility]; 08/09/2020) . 02 Electronically signed: . Lamont Kerns MD, Pathologist NPI- [id number] . 01 Gross description: . Received in formalin labeled "Navinsky, Vinh and lumbar decompression". Received are multiple congested pink-pacheco fibrous soft soft tissue fragments admixed with cartilage/bone measuring in aggregate 5.0 x 5.0 x 1.0 cm. The specimen is representatively submitted in cassette A1 after decalcification.([facility]; 08/05/2020) [facility] 08/05/2020 1841 Local . 02 Pathologist provided ICD-10: M51.36 . 02 CPT . 335766, [id number] Specimen Comment: A courtesy copy of this report has been sent to [phone], [phone] Specimen Comment: [id number] Specimen Comment: Report sent to / DR VILLAGOMEZ Specimen Comment: A duplicate report has been generated due to demographic updates. Performed at: [address], [place] [id number] MD Benigno Landeros MD Phone: [phone] Performed at: 02 [facility] [address], [place] [id number] MD Lamont Kerns MD Phone: [phone]
== END 2020-08-06 13:45 | disposition home or self-care (01) ==
LOC: SURG 07:16 → 4 SOUTHEST 12:21
PROVIDERS: ADMIT Neurological Surgery; ATTEND Neurological Surgery
DX: M48.062 Spinal stenosis, lumbar region with neurogenic claudication (principal); M48.061 Spinal stenosis, lumbar region without neurogenic claudication; I10 Essential (primary) hypertension; I25.10 Atherosclerotic heart disease of native coronary artery without angina pectoris; I25.2 Old myocardial infarction; E11.40 Type 2 diabetes mellitus with diabetic neuropathy, unspecified; Z95.1 Presence of aortocoronary bypass graft; Z87.891 Personal history of nicotine dependence; Z86.718 Personal history of other venous thrombosis and embolism; Z79.899 Other long term (current) drug therapy; Z98.890 Other specified postprocedural states
CPT/HCPCS: 63030; 63047; 63048; 82962; 88304; 88311; 96360; 96361; 97116; 97162; 97530; A4364; A4930; A6254; A6258; G0378; G0379; J0330; J0690; J1100; J1885; J2250; J2370; J2405; J2704; J3010; J3480; J3490; 76000; A4222; A4657

== ENCOUNTER → 2020-09-02 | Outpatient (CLI) | payer OTHER ==
[2020-08-06 10:45] VITALS: BP 106/54
[~2020-09-02] MED LIST changes: -BUPIVACAINE-EPI 0.5%-1:200000 MPF 30 ML VIAL. ONE; -DEXAMETHASONE SOD PHOS 4 MG/ML VIAL ONE; +DOCU-153 PO; -GELATIN SPONGE SIZE 100. ONE; +HYDR-2761 PO; -HYDROmorphone 2 MG/ML VIAL IVP PRN; -IV RINGERS,LACTATED 1000ML 1,000 ML IV SCH; -KETOROLAC 60 MG/2 ML VIAL. ONE; -LIDOCAINE 2% PF 5 ML VIAL. ONE; +METH-562 PO; -MORPHINE SULFATE 2 MG/ML VIAL. IVP PRN; -ONDANSETRON PF 4 MG/2 ML VIAL. ONE; -PHENYLEPHRINE in 0.9% NACL PF 1 MG/10 ML SYRINGE. IV ONE; -PROCHLORPERAZINE 10 MG/2 ML VIAL. IVP PRN; -PROPOFOL 10 MG/ML (20ML) VIAL. IV ONE; -PROPOFOL 50 ML IV ONE; -REMIFENTANIL 2 MG VIAL. IV ONE; -ROCURONIUM 50 MG/5 ML VIAL. ONE; -THROMBIN TOPICAL 20,000 UNIT SPRAY.SYRN KIT TP ONE; -fentaNYL PF VIAL 100 MCG/2 ML VIAL IVP PRN; -fentaNYL PF VIAL 100 MCG/2 ML VIAL ONE
--- NOTE | 2020-09-02 17:28 | CARD ---
MR#: [id number] Date of Study: 09/02/2020 Ordering Physician: RM PARMAR, Referring Physician: Wilman MONSIVAIS: Amanda Maharaj [facility] APPROVED REPORT EXAM: Two-dimensional and M-mode echocardiogram with Doppler and color Doppler. Other Information Quality : FairHR: 57bpm Rhythm : NSR INDICATION Cardiac Disease: CAD Surgery/Intervention CABG: RISK FACTORS Hypertension Hyperlipidemia 2D DIMENSIONS RVDd2.6 (2.9-3.5cm)Left Atrium(2D)3.9 (1.6-4.0cm) IVSd1.1 (0.7-1.1cm)Aortic Root(2D)2.7 (2.0-3.7cm) LVDd5.1 (3.9-5.9cm)LVOT Diameter2.1 (1.8-2.4cm) PWd1.1 (0.7-1.1cm)LVDs4.0 (2.5-4.0cm) FS (%) 21.6 %SV53.9 ml Aortic Valve AoV Peak Brent.136.9cm/Laura Peak GR.8.0mmHg LVOT Peak Brent.108.6cm/sAVA (VMAX)2.81cm2 Mitral Valve MV E Vjkwobwx141.6cm/sMV DECEL [id number] MV A Admfpduy90.5cm/sE/A Ratio1.2 Pulmonary Valve PV Peak Wicuamoj112.8cm/s Tricuspid Valve TR P. Bxwenqpk540ay/sRAP KOBQRTIU1uqXa TR Peak Gr.73hcHgKVDK78emSo Pulmonary Vein S1 Ubchkjpd42.6cm/sD2 Ynuxbmrd54.8cm/s PVa [id number] LEFT VENTRICLE The left ventricle is normal size. There is borderline concentric left ventricular hypertrophy. The l eft ventricular systolic function is normal and the ejection fraction is within normal range. Ejectio n fraction is 50 to 55%. No regional wall motion abnormalities noted. The left ventricular diastolic function is normal. No left ventricle thrombus noted on this study. There is no ventricular septal de fect visualized. There is no left ventricular aneurysm. There is no mass noted in the left ventricle. RIGHT VENTRICLE The right ventricle is normal size. There is normal right ventricular wall thickness. The right ventr icular systolic function is normal. ATRIA The left atrium size is normal. The right atrium size is normal. The interatrial septum is intact wit h no evidence for an atrial septal defect or patent foramen ovale as noted on 2-D or Doppler imaging. AORTIC VALVE The aortic valve is normal in structure and function. Doppler and Color Flow revealed no significant aortic regurgitation. There is no significant aortic valvular stenosis. There is no aortic valvular v egetation. MITRAL VALVE The mitral valve is normal in structure and function. There is no evidence of mitral valve prolapse. There is no mitral valve stenosis. There is no mitral valve regurgitation noted. TRICUSPID VALVE The tricuspid valve is normal in structure and function. Doppler and Color Flow revealed trace tricus pid regurgitation. There is no tricuspid valve prolapse or vegetation. There is no tricuspid valve st enosis. PULMONIC VALVE The pulmonary valve is normal in structure and function. Doppler and Color Flow revealed trace to mil d pulmonic valvular regurgitation. There is no pulmonic valvular stenosis. GREAT VESSELS The aortic root is normal in size. The ascending aorta is normal in size. The pulmonary artery is nor mal. The IVC is normal in size and collapses >50% with inspiration. PERICARDIAL EFFUSION There is no pleural effusion. The pericardium appears normal. Critical Notification Critical Value: No <Conclusion> The left ventricle is normal size. The left ventricular systolic function is normal and the ejection fraction is within normal range. Ejection fraction is 50 to 55%. There is borderline concentric left ventricular hypertrophy. Doppler and Color Flow revealed no significant aortic regurgitation. There is no significant aortic valvular stenosis. There is no mitral valve regurgitation noted. Doppler and Color Flow revealed trace tricuspid regurgitation. Signed by : Zhang Hooper MD Electronically Approved : 09/02/2020 17:27:33
== END ==
LOC: ECHO 08:09
PROVIDERS: ATTEND Internal Medicine Cardiovascular Disease
DX: I37.1 Nonrheumatic pulmonary valve insufficiency (principal); I25.10 Atherosclerotic heart disease of native coronary artery without angina pectoris; I51.7 Cardiomegaly
CPT/HCPCS: 93306